=== PATIENT | female | born 1965 | race Asian ===

== ENCOUNTER 2017-08-14 12:19 | Day surgery (SDC) | payer OTHER ==
[2017-08-14] MEDS ORDERED: PROPOFOL 20 ML (15:19)
[2017-08-14] MEDS ORDERED: MIDAZOLAM 1 MG/ML 2 ML INJ (15:20)
[2017-08-14] MEDS ORDERED: FENTAnyl 50 MCG/ML VIAL (15:20)
== END 2017-08-14 19:33 | disposition home or self-care (01) ==
LOC: GIL 12:19
DX: Z12.11 Encounter for screening for malignant neoplasm of colon (principal); I10 Essential (primary) hypertension
CPT/HCPCS: 43239; 88305; 88312; 88313